=== PATIENT | male | born 1960 | race Two or more races ===

== ENCOUNTER → 2016-05-11 | Outpatient (CLI) | payer OTHER ==
[~2016-05-11] MED LIST: /CELE20CA PO; /ONDA4TA OR; /ROPI25TA PO; /WARF25TA PO; ACET50TA PO; BENA25CA2 PO; BUPR150T22 PO; CIPR500T89 PO; DOCU10ELUD PO; FLAG500T PO; GINKTAB PO; HYZA50TA2 PO; IBUP600T26 PO; LIPI10TA PO; LIPI20TA PO; LISI5TAB PO; LYRI75CA PO; MULTTAB4 PO; NEUR600T PO; OXYC-299 PO; OXYC30TA4 PO; PERC5TAB6 PO; PERC7.5T12 PO; PRIL20CA PO; PRIN10TA PO; PROZ20CA11 PO; XANA2TAB2 PO; XANEX; XARE10TA PO; ZOLP-189 PO
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
== END ==
LOC: M PAIN 15:20
PROVIDERS: ATTEND Nurse Practitioner Family
DX: G89.29 Other chronic pain (principal); M54.81 Occipital neuralgia; R51 Headache; G47.30 Sleep apnea, unspecified; I10 Essential (primary) hypertension; K21.9 Gastro-esophageal reflux disease without esophagitis; E78.00 Pure hypercholesterolemia, unspecified; F41.9 Anxiety disorder, unspecified; F43.10 Post-traumatic stress disorder, unspecified; Z88.5 Allergy status to narcotic agent; Z79.1 Long term (current) use of non-steroidal anti-inflammatories (NSAID); Z79.899 Other long term (current) drug therapy; Z87.820 Personal history of traumatic brain injury

== ENCOUNTER → 2016-06-08 | Outpatient (CLI) | payer OTHER ==
[~2016-06-08] MED LIST changes: +BUPIVACAINE HCL 0.25% 10 ML VIAL As Ordered ONE; +BUPIVACAINE HCL 0.25% 30 ML VIAL As Ordered ONE; +TRIAMCINOLONE ACETONIDE SUSP 40 MG/ML VIAL (J3301) As Ordered ONE; +diazePAM 5 MG TAB As Ordered ONE; +oxyCODONE 5MG TAB As Ordered ONE
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
== END ==
LOC: M PAIN 09:00
PROVIDERS: ATTEND Anesthesiology
DX: G89.29 Other chronic pain (principal); M54.81 Occipital neuralgia; I10 Essential (primary) hypertension; G43.909 Migraine, unspecified, not intractable, without status migrainosus; K21.9 Gastro-esophageal reflux disease without esophagitis; E78.00 Pure hypercholesterolemia, unspecified; F41.9 Anxiety disorder, unspecified; F43.10 Post-traumatic stress disorder, unspecified; G47.30 Sleep apnea, unspecified; Z88.5 Allergy status to narcotic agent; Z79.899 Other long term (current) drug therapy; Z87.820 Personal history of traumatic brain injury
CPT/HCPCS: 64405; J3301

== ENCOUNTER → 2016-06-29 | Outpatient (CLI) | payer OTHER ==
[~2016-06-29] MED LIST changes: -BUPIVACAINE HCL 0.25% 10 ML VIAL As Ordered ONE; -BUPIVACAINE HCL 0.25% 30 ML VIAL As Ordered ONE; -TRIAMCINOLONE ACETONIDE SUSP 40 MG/ML VIAL (J3301) As Ordered ONE; -diazePAM 5 MG TAB As Ordered ONE; -oxyCODONE 5MG TAB As Ordered ONE
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
== END ==
LOC: M PAIN 09:00
PROVIDERS: ATTEND Nurse Practitioner Family
DX: G89.29 Other chronic pain (principal); M54.81 Occipital neuralgia; I10 Essential (primary) hypertension; G43.909 Migraine, unspecified, not intractable, without status migrainosus; K21.9 Gastro-esophageal reflux disease without esophagitis; E78.00 Pure hypercholesterolemia, unspecified; F41.9 Anxiety disorder, unspecified; F43.10 Post-traumatic stress disorder, unspecified; G47.30 Sleep apnea, unspecified; Z88.5 Allergy status to narcotic agent; Z79.899 Other long term (current) drug therapy; Z86.19 Personal history of other infectious and parasitic diseases

== ENCOUNTER → 2016-07-12 | Outpatient (CLI) | payer OTHER ==
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
== END ==
LOC: M PAIN 10:00
PROVIDERS: ATTEND Nurse Practitioner Family
DX: M54.81 Occipital neuralgia (principal); Z88.5 Allergy status to narcotic agent; Z79.899 Other long term (current) drug therapy

== ENCOUNTER → 2016-09-12 | Outpatient (CLI) | payer OTHER ==
[~2016-09-12] MED LIST changes: +OXYC-141 PO; -OXYC-299 PO; +PERC5TAB12 PO; -PERC5TAB6 PO
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
== END ==
LOC: M PAIN 13:00
PROVIDERS: ATTEND Nurse Practitioner Family
DX: M54.81 Occipital neuralgia (principal); G89.29 Other chronic pain; Z79.899 Other long term (current) drug therapy; Z88.5 Allergy status to narcotic agent

== ENCOUNTER → 2018-01-23 | Outpatient (REF) | LOC: M SMT 11:28 | DX: Z00.00 Encounter for general adult medical examination without abnormal findings (principal) ==

== ENCOUNTER → 2022-03-14 | Outpatient (CLI) | payer OTHER ==
[~2022-03-14] MED LIST changes: -/CELE20CA PO; -/ONDA4TA OR; -/ROPI25TA PO; -/WARF25TA PO; -ACET50TA PO; +CELE1CAP4 PO; +COUM1TAB18 PO; -DOCU10ELUD PO; +DOCU5LIQ PO; -HYZA50TA2 PO; +LOSA-532 PO; +MAPA500T17 PO; +ONDA-1 OR; +REQU1TAB14 PO
== END ==
LOC: M SLEEP 20:00
PROVIDERS: ATTEND Physician Assistant Medical
DX: G47.61 Periodic limb movement disorder (principal); G47.33 Obstructive sleep apnea (adult) (pediatric)